=== PATIENT | male | born 1955 | race Caucasian/White ===

== ENCOUNTER 2019-02-07 10:43 | Day surgery (SDC) | payer BC ==
--- NOTE | 2019-02-06 14:05 | HP ---
REPORT DICTATED AND TRANSCRIBED AT [facility] ON 02/05/2019 FAXED TO [facility] ON 02/06/2019. DATE OF SURGERY: 02/07/2019 ADMISSION DIAGNOSIS: Symptomatic cholelithiasis. ANTICIPATED PROCEDURE: Cholecystectomy. HISTORY OF PRESENT ILLNESS: Patient has upper abdominal pain. Ultrasound positive. Seen and examined. Procedure discussed in detail and he wished to proceed. PAST MEDICAL HISTORY: ALLERGIES: PENICILLIN. MEDICATIONS: See list. PAST SURGICAL HISTORY: Lap-Band. Hernia. Left and right carpal tunnel. SOCIAL HISTORY: Negative. FAMILY HISTORY: Negative. REVIEW OF SYSTEMS: CVS: He has had a complete cardiac checkup. Satisfactory. PULMONARY: Negative. GI: Some reflux. : Negative. PHYSICAL EXAMINATION: VITAL SIGNS: Normal. CHEST: Clear. COR: Regular. ABDOMEN: No palpable organomegaly or mass. IMPRESSION: Symptomatic cholelithiasis. PLAN: Laparoscopic cholecystectomy.
[~2019-02-07 10:43] MED LIST: CLINDAMYCIN-D5W 900 MG/50 ML*** 900 MG/50 ML BAG IV STA; Lactated Ringers 1,000 ML IV ONE; Lactated Ringers 1,000 ML IV SCH; Levofloxacin 500MG/100ML D5W 500 MG/100 ML BAG IV STA; Sensorcaine 0.25% 10 ML ONE
[2019-02-07] MEDS ORDERED: Decadron 4 MG INJ IV ONE (10:44)
[2019-02-07] MEDS ORDERED: Zofran 4 MG/2 ML VIAL IV ONE (10:44)
[2019-02-07] MEDS ORDERED: SUBLIMAZE 100 MCG/2 ML IV ONE ×2 (10:44)
[2019-02-07] MEDS ORDERED: BRIDION 200MG/2ML IV ONE (10:44)
[2019-02-07] MEDS ORDERED: DIPRIVAN 200 MG/20 ML IV ONE (10:44)
[2019-02-07] MEDS ORDERED: TORAdol 30 mg Injection IV ONE (10:44)
[2019-02-07] MEDS ORDERED: Zemuron 100 MG/10 ML IV ONE (10:44)
[2019-02-07] MEDS ORDERED: XYLOCAINE 1% HCL 20 ML MDV ONE (16:10)
[2019-02-07] MEDS ORDERED: Zofran 4 MG/2 ML VIAL ONE (17:12)
[2019-02-07] MEDS ORDERED: MORPHINE SULFATE 10 MG/ML ONE (17:12)
[2019-02-07] MEDS ORDERED: SUBLIMAZE 100 MCG/2 ML ONE (17:20)
[2019-02-07] MEDS ORDERED: MORPHINE SULFATE 4 MG INJ IV PRN (17:51)
[2019-02-07] MEDS ORDERED: MORPHINE SULFATE 4 MG INJ ONE (17:52)
[2019-02-07 18:25] VITALS: BP 127/88; PULSE 81; O2SAT 94
--- NOTE | 2019-02-08 08:20 | OP ---
SURGERY DATE/TIME: 02/07/2019 1546 PREOPERATIVE DIAGNOSIS: Symptomatic cholelithiasis. POSTOPERATIVE DIAGNOSIS: Symptomatic cholelithiasis. PROCEDURE: Laparoscopic cholecystectomy. SURGEON: Dr. Denney. ANESTHESIA: General. ESTIMATED BLOOD LOSS: None. COMPLICATIONS: None. CONDITION: Stable. INDICATIONS: A patient with upper abdominal pain, ultrasound positive. Seen and examined. Procedure discussed in detail and wished to proceed. DESCRIPTION OF PROCEDURE AND FINDINGS: Taken to surgery. General anesthetic, routine prep and drape. Time out performed. Veress needle inserted. Opening pressure of 1, insufflating pressure 14. Four - 5's. Good visualization. Cystic artery defined. Cystic artery defined. Both structures triply clipped and transected. Clips noted across and well approximated. Gallbladder rolled out of gallbladder fossa. The gallbladder delivered through upper abdominal port with some widening as there were large stones. The field was totally clean. Hole closure device used with [id number] 0 Vicryl. CO2 exsufflated. Skin closed with 4-0 Vicryl and Steri-Strips. The patient tolerated the procedure satisfactorily.
== END 2019-02-07 18:33 | disposition home or self-care (01) ==
LOC: SDC 10:43
PROVIDERS: ATTEND Surgery
DX: K80.20 Calculus of gallbladder without cholecystitis without obstruction (principal)
CPT/HCPCS: J1100; J1885; J1956; J2270; J2405; J2704; J3010

== ENCOUNTER 2022-10-18 05:43 | Day surgery (SDC) | payer MEDICARE ==
[~2022-10-18 05:43] MED LIST changes: -CLINDAMYCIN-D5W 900 MG/50 ML*** 900 MG/50 ML BAG IV STA; -Lactated Ringers 1,000 ML IV ONE; -Levofloxacin 500MG/100ML D5W 500 MG/100 ML BAG IV STA; -Sensorcaine 0.25% 10 ML ONE
[2022-10-18] MEDS ORDERED: Lactated Ringers 1,000 ML IV SCH (06:30)
[2022-10-18] MEDS ORDERED: Versed 2 MG/2 ML Injection ONE (06:50)
[2022-10-18] MEDS ORDERED: DIPRIVAN 200 MG/20 ML IV ONE (06:50)
[2022-10-18] MEDS ORDERED: Xylocaine-Mpf 2% 5 Ml Vial ONE (06:59)
[2022-10-18 07:27] VITALS: O2SAT 95
[2022-10-18 07:41] VITALS: BP 145/87; PULSE 59
--- NOTE | 2022-10-18 10:31 | OP ---
SURGERY DATE/TIME: 10/18/2022 0657 PREOPERATIVE DIAGNOSIS: Screening exam. POSTOPERATIVE DIAGNOSIS: Normal colon. PROCEDURE: Colonoscopy. SURGEON: Dr. Jh Patrick. ANESTHESIA: MAC. Medications given by anesthesia department. HISTORY: The patient is a 66-year-old white male patient presenting now for screening colonoscopy. He was appraised of the risks of the procedure including the risk of perforation, phlebitis, untoward reaction to medication, bleeding and missed lesions. The patient verbalized his understanding and desired to have the procedure performed. DESCRIPTION OF PROCEDURE: The patient was given the medications by the anesthesia department. He had continuous pulse oximetry, ECG monitoring, intermittent blood pressure monitoring and tidal CO2 monitoring during the examination. He was placed in the left lateral decubitus position. A digital rectal examination was performed and revealed normal anal sphincter tone, no masses and normal prostate. The flexible Olympus pediatric colonoscope was used to intubate the rectum. A view of the colon was developed sequentially to the cecum. Upon insertion and withdrawal, including a retroflex view in the rectum, no mucosal lesions were encountered. The scope was removed from the patient who tolerated the procedure well and was sent back to outpatient recovery in good condition. The prep was noted to be fair as there was a large amounts of liquid stool present in the colon.
== END 2022-10-18 07:55 | disposition home or self-care (01) ==
LOC: SDC 05:43
PROVIDERS: ATTEND Family Medicine
DX: Z12.11 Encounter for screening for malignant neoplasm of colon (principal)
CPT/HCPCS: J2250; J2704

== ENCOUNTER 2023-08-14 21:45 | Emergency (ER) | payer MEDICARE ==
[2023-08-14 21:49] VITALS: TEMP 98.1
[2023-08-14] MEDS ORDERED: BENADRYL 25 MG CAPSULE PO ONE (21:51)
[2023-08-14] MEDS ORDERED: Pepcid 20 MG PO ONE (21:51)
--- NOTE | 2023-08-14 21:51 | ERPHSYRPT ---
- History of Present Illness Time Seen by Provider: 08/14/23 21:49 Source: patient, EMS, old records Exam Limitations: no limitations Physician History: This is an overweight 67-year-old white male patient was brought to the emergency department secondary to what is felt to be an allergic reaction. Patient received an intramuscular injection of an antibiotic at an outpatient office earlier this afternoon to treat a urinary tract infection. This evening he began having some wheezing and shortness of breath as well as rash and tightening of the throat. The patient does not have any chest pain. Paramedics arrived and provided the patient with a shot of epinephrine, intravenous 125 mg Solu-Medrol and 25 mg intravenous Benadryl. Patient's symptoms were improving. Patient is allergic to penicillin. We are unable to locate in our system what antibiotics the patient received. I am also not able to determine which oral, outpatient antibiotic was sent to the patient's pharmacy. Patient currently denies wheezing and shortness of breath. Although he did sense those symptoms earlier today. Patient was brought to the emergency department by the paramedics. Timing/Duration: today Severity: moderate Associated Symptoms: shortness of breath Allergies/Adverse Reactions: Penicillins Allergy (Severe, Verified 10/18/22 06:09) Swelling of Hands and feet strawberry Allergy (Verified 10/18/22 06:09) Vomiting Home Medications: Lisinopril 20 mg [Zestril 20 MG] 10 mg PO DAILY 01/28/19 [History] Naproxen 500 mg [Naprosyn 500 MG] 500 mg PO BID 01/28/19 [History] Omeprazole 40 mg PO DAILY 01/28/19 [History] Oxybutynin Chloride [Oxybutynin Chloride ER] 5 mg PO DAILY 02/07/19 [History] Metoprolol Succinate 25 mg Xl* [Toprol-Xl 25MG Tablets] 25 mg PO HS 08/14/23 [History] Travel Risk - International Travel Have you traveled outside of the country in past 3 weeks: No - Coronavirus Screening Are you exhibiting any of the following symptoms?: No Close contact with a COVID-19 positive Pt in past 14-21 Days: No - Review of Systems Constitutional: No Symptoms Eyes: No Symptoms Ears, Nose, & Throat: No Symptoms, Throat Swelling ([place] some throat tightness. None now) Respiratory: Wheezing (Earlier at home) Cardiac: No Symptoms Abdominal/Gastrointestinal: No Symptoms Genitourinary Symptoms: No Symptoms Musculoskeletal: No Symptoms Skin: No Symptoms Neurological: No Symptoms Psychological: No Symptoms Endocrine: No Symptoms Hematologic/Lymphatic: No Symptoms Immunological/Allergic: No Symptoms All Other Systems: Reviewed and Negative - Past Medical History Pertinent Past Medical History: Yes Neurological History: No Pertinent History ENT History: No Pertinent History Cardiac History: High Cholesterol, Hypertension Respiratory History: No Pertinent History Endocrine Medical History: No Pertinent History Musculoskeletal History: Osteoarthritis, Other GI Medical History: No Pertinent History History: Other Psycho-Social History: No Pertinent History Male Reproductive Disorders: Prostate Problems Other Medical History: BEEN REFERRED TO HAND SPECIALIST HE HAS BEEN HAVING PAIN IN RIGHT THUMB (1ST MCP) AND A CYST IN LEFT PALM. PMHX: OA, SANDOR CARPAL TUNNEL, BPH - Past Surgical History Past Surgical History: Yes Neuro Surgical History: No Pertinent History Cardiac: No Pertinent History Respiratory: No Pertinent History Gastrointestinal: Cholecystectomy, Hernia Repair, Other Genitourinary: No Pertinent History Musculoskeletal: Other Male Surgical History: No Pertinent History Other Surgical History: lap band. carpal tunnel bilateral - Social History Smoking Status: Former smoker Exposure to second hand smoke: No Drug Use: none - Nursing Vital Signs Nursing Vital Signs: Initial Vital Signs Blood Pressure 120/82 08/14/23 21:45 O2 Sat by Pulse Oximetry 94 L 08/14/23 21:45 Pain Scale Pain Intensity 0 - Physical Exam General Appearance: no apparent distress, alert, anxiety, obese Eye Exam: PERRL/EOMI, eyes nml inspection Ears, Nose, Throat Exam: normal ENT inspection, moist mucous membranes Neck Exam: normal inspection, non-tender, supple, full range of motion Respiratory Exam: normal breath sounds, lungs clear, airway intact, No chest tenderness, No respiratory distress Cardiovascular Exam: tachycardia Gastrointestinal/Abdomen Exam: soft, normal bowel sounds, No tenderness Rectal Exam: not done Back Exam: normal inspection, normal range of motion, No CVA tenderness, No vertebral tenderness Extremity Exam: normal inspection, normal range of motion, pelvis stable Neurologic Exam: alert, oriented x 3, cooperative, de icer finisher II-XII nml as tested, normal mood/affect, nml cerebellar function, nml station & gait, sensation nml Skin Exam: normal color, warm, dry Lymphatic Exam: No adenopathy SpO2 Interpretation: borderline oxygenation SpO2: 94 O2 Delivery: Room Air - Course Nursing assessment & vital signs reviewed: Yes EKG Interpreted by Me: RATE ([id number]), Sinus Rhythm, LAFB, Right Bundle Branch Block, Other (Acute ischemic changes on today's twelve-lead EKG. the L AFB is a new finding when compared to twelve-lead EKG on 05/26/2021. There is persistent right bundle bart block.) Ordered Tests: Active Orders 24 hr Category Date Time Status IV Insertion STAT Care 08/14/23 22:14 Active CHEST WITH CONTRAST [CT] Stat Exams 08/14/23 22:44 Completed BMP Stat Lab 08/14/23 22:10 Completed CBC W DIFF Stat Lab 08/14/23 22:10 Completed D-DIMER QUANTITATIVE Stat Lab 08/14/23 22:10 Completed POCT GLUCOSE Stat Lab 08/14/23 22:11 Completed TROPONIN Q4H Lab 08/14/23 22:10 Completed TROPONIN Q4H Lab 08/15/23 01:10 Received TROPONIN Q4H Lab 08/15/23 06:00 Ordered Medication Summary Discontinued Medications Generic Name Dose Route Start Last Admin Trade Name Freq PRN Reason Stop Dose Admin Diphenhydramine HCl 25 mg 08/14/23 21:51 08/14/23 22:32 Diphenhydramine Hcl 25 Mg Capsule PO 08/14/23 21:52 25 mg STAT ONE Administration Diphenhydramine HCl Confirm 08/14/23 22:32 Diphenhydramine Hcl 25 Mg Capsule Administered 08/14/23 22:33 Dose 25 mg .ROUTE .STK-MED ONE Famotidine 40 mg 08/14/23 21:51 08/14/23 22:33 Famotidine 20 Mg Tablet PO 08/14/23 21:52 40 mg STAT ONE Administration Famotidine Confirm 08/14/23 22:32 Famotidine 20 Mg Tablet Administered 08/14/23 22:33 Dose 40 mg .ROUTE .STK-MED ONE Sodium Chloride 500 mls @ 500 mls/hr 08/14/23 22:44 08/15/23 00:09 Sodium Chloride 0.9% 500 Ml IV 08/14/23 23:43 Infused .Q1H ONE Infusion Sodium Chloride Confirm 08/14/23 22:52 Sodium Chloride 0.9% 500 Ml Administered 08/14/23 22:53 Dose 500 mls @ ud IV .STK-MED ONE Lab/Rad Data: Laboratory Result Diagrams 08/14/23 22:10 08/14/23 22:10 Laboratory Results 08/14/23 08/14/23 08/14/23 Range/Units 22:11 22:10 22:10 WBC (4.0-10.5) x10^3/uL RBC (4.1-5.6) x10^6/uL Hgb (12.5-18.0) g/dL Hct (42-50) % MCV (78-100) fL MCH (26-32) pg MCHC (32-36) g/dL RDW (11.5-14.0) % Plt Count (150-450) x10^3/uL MPV (7.5-11.0) fL Gran % (36.0-66.0) % Immature Gran % (Auto) (0.00-0.4) % Nucleat RBC Rel Count (0.00-0.1) % Eos # (Auto) (0-0.5) x10^3/uL Immature Gran # (Auto) (0.00-0.03) x10^3u/L Absolute Lymphs (auto) (1.0-4.6) x10^3/uL Absolute Monos (auto) (0.0-1.3) x10^3/uL Absolute Nucleated RBC (0.00-0.01) x10^3u/L Lymphocytes % (24.0-44.0) % Monocytes % (0.0-12.0) % Eosinophils % (0.00-5.0) % Basophils % (0.0-0.4) % Absolute Granulocytes (1.4-6.9) x10^3/uL Basophils # (0-0.4) x10^3/uL D-Dimer 16.87 H* (0.0-0.50) mg/L Sodium (137-145) mmol/L Potassium (3.5-5.1) mmol/L Chloride (98-107) mmol/L Carbon Dioxide (22-30) mmol/L Anion Gap (5-15) MEQ/L BUN (9-20) mg/dL Creatinine (0.66-1.25) mg/dL Estimated GFR ML/MIN Glucose (74-106) mg/dL POC Glucometer 169 H (74 to 106) mg/dL Calcium (8.4-10.2) mg/dL Troponin I 0.100 H* (0.000-0.034) ng/mL Slides for Path Review 08/14/23 08/14/23 Range/Units 22:10 22:10 WBC 8.9 (4.0-10.5) x10^3/uL RBC 4.83 (4.1-5.6) x10^6/uL Hgb 14.8 (12.5-18.0) g/dL Hct 44.1 (42-50) % MCV 91.3 (78-100) fL MCH 30.6 (26-32) pg MCHC 33.6 (32-36) g/dL RDW 14.4 H (11.5-14.0) % Plt Count 146 L (150-450) x10^3/uL MPV 10.5 (7.5-11.0) fL Gran % 85.1 H (36.0-66.0) % Immature Gran % (Auto) 1.5 H (0.00-0.4) % Nucleat RBC Rel Count 0.0 (0.00-0.1) % Eos # (Auto) 0.01 (0-0.5) x10^3/uL Immature Gran # (Auto) 0.13 H (0.00-0.03) x10^3u/L Absolute Lymphs (auto) 0.53 L (1.0-4.6) x10^3/uL Absolute Monos (auto) 0.62 (0.0-1.3) x10^3/uL Absolute Nucleated RBC 0.00 (0.00-0.01) x10^3u/L Lymphocytes % 6.0 L (24.0-44.0) % Monocytes % 7.0 (0.0-12.0) % Eosinophils % 0.1 (0.00-5.0) % Basophils % 0.3 (0.0-0.4) % Absolute Granulocytes 7.55 H (1.4-6.9) x10^3/uL Basophils # 0.03 (0-0.4) x10^3/uL D-Dimer (0.0-0.50) mg/L Sodium 136 L (137-145) mmol/L Potassium 3.7 (3.5-5.1) mmol/L Chloride 102 (98-107) mmol/L Carbon Dioxide 21 L (22-30) mmol/L Anion Gap 16.0 H (5-15) MEQ/L BUN 26 H (9-20) mg/dL Creatinine 1.53 H (0.66-1.25) mg/dL Estimated GFR 48.6 ML/MIN Glucose 168 H (74-106) mg/dL POC Glucometer (74 to 106) mg/dL Calcium 9.4 (8.4-10.2) mg/dL Troponin I (0.000-0.034) ng/mL Slides for Path Review YES - Progress Progress: improved, re-examined Progress Note: 08/14/23 22:03 This patient's medical issue is 1 of moderate to high complexity complexity. Level complex in the work-up performed is based on review of the patient's past medical history, review of the patient's drug allergy list, review of the jack ent's medication list, history of present illness and physical findings on examination. The work-up in the patient includes a twelve-lead EKG, oral Benadryl 25 mg, oral famotidine 40 mg, CBC, BMP and troponin level. 08/15/23 01:02 I reviewed the results of the work-up. The patient's troponin is 0.1 which is elevated. Patient continues not having chest pain. He is only mildly short of breath. His D-dimer is elevated and we ordered a CT of the chest with contrast. The radiologist interpreted this study. There is no evidence of infiltrate. There is findings to suggest pulmonary hypertension but no evidence for pulmonary embolism. We will contact [facility] about transferring this patient. 08/15/23 01:[address] Trent the emergency room physician on at [facility]. I reviewed the patient history, I reviewed the patient presenting complaint, I reviewed the patient's work-up results including the twelve-lead EKG troponin level as well as the impression on the CT scan of the chest that was interpreted by the radiologist. Dr. Trent accepts the patient in transfer. Counseled pt/family regarding: lab results, diagnosis, need for follow-up Medical Desision Making - Independent Historian Additional History obtained from: Spouse, Family, Roll Wrapper/EMT - Diagnostic Testing Diagnostic test were ordered, analyzed, and reviewed by me: Yes Radiological Interpretation: Reviewed by me, Teleradiologist Report - Risk of complications The pt has a high risk of morbidity or mortality based on: Decision regarding hospitilization or escalation of hosp level of care - Departure Departure Disposition: Transfer Clinical Impression: Non-STEMI (non-ST elevated myocardial infarction) Condition: Stable Critical Care Time: No Referrals: SPEEDY SCHULZ MD [Primary Care Provider] - Follow up/PCP as directed
[2023-08-14 22:20] LABS: Absolute Neutrophil Ct (ANC) 7.55 x10^3/uL (1.4-6.9); BASOPHIL % 0.3 % (0.0-0.4); Basophil (Absolute #) 0.03 x10^3/uL (0-0.4); Eosinophil % 0.1 % (0.00-5.0); Eosinophil (Absolute #) 0.01 x10^3/uL (0-0.5); Hematocrit 44.1 % (42-50); Hemoglobin 14.8 g/dL (12.5-18.0); IMMATURE GRAN # 0.13 x10^3u/L (0.00-0.03); IMMATURE GRAN % 1.5 % (0.00-0.4); Lymphocyte (Absolute #) 0.53 x10^3/uL (1.0-4.6); Mean Cell Volume 91.3 fL (78-100); Mean Corpuscular Hemoglobin 30.6 pg (26-32); Mean Corpuscular Hgb Concent. 33.6 g/dL (32-36); Mean Platelet Volume 10.5 fL (7.5-11.0); Monocyte (Absolute #) 0.62 x10^3/uL (0.0-1.3); Neutrophil % 85.1 % (36.0-66.0); Platelet Count 146 x10^3/uL (150-450); Red Blood Count 4.83 x10^6/uL (4.1-5.6); Red Cell Distribution Width 14.4 % (11.5-14.0); White Blood Count 8.9 x10^3/uL (4.0-10.5)
[2023-08-14 22:32] LABS: Calcium 9.4 mg/dL (8.4-10.2); Creatinine 1 1.53 mg/dL (0.66-1.25); EST GLOMERULAR FILTRATION RATE 48.6 ML/MIN; Potassium 3.7 mmol/L (3.5-5.1)
[2023-08-14] MEDS ORDERED: BENADRYL 25 MG CAPSULE ONE (22:32)
[2023-08-14] MEDS ORDERED: Pepcid 20 MG ONE (22:32)
[2023-08-14] MEDS ORDERED: Sodium Chloride 0.9% 500 ML 500 ML IV ONE ×2 (22:44→22:52)
[2023-08-14 22:59] LABS: Slide Review 1 YES
--- NOTE | 2023-08-15 00:43 | XRAY ---
CLINICAL HISTORY:Elevated D-dimer; SOA COMPARISON:None. TECHNIQUE:Contiguous 3.[address] anigographic images of the chest were acquired with the administration of intravenous contrast with PE protocol. Coronal and sagittal reconstructions were obtained. FINDINGS: The study is partly degraded by respiratory motion artifacts. No evidence of any filling defect in the main pulmonary trunk, bilateral main pulmonary arteries, segmental arteries and subsegmental arteries to suggest acute or chronic pulmonary embolism. The main pulmonary trunk measures 3.4 cm. The right main pulmonary measures 2.2 cm left main pulmonary artery measures 2.3 cm at the level of [place]. Findings are concerning for pulmonary arterial hypertension. Normal cardiac size and shape. fine aortic atheromatous calcifications. Bilateral lower lobes posterior segments subpleural patchy parenchymal veiling, possibly gravitational changes. Focal subpleural calcification/plaque measuring 1.0 x 0.6 cm is seen medially in the right lower lobe on axial series 2, image 231/261. Right lower and middle lobes as well as lingular fine atelectatic plates. Right hilar calcified lymph nodes. No pleural or pericardial sac collections. A focal 3 mm right thyroid lobe calcification. Scanned upper abdominal cuts show fatty hepatomegaly, bulky splenic showing calcific foci, gastric band with small hiatus hernia, right adrenal myelolipoma measuring about 4 cm in diameter and small left cortical renal cyst. Degenerative spondylotic changes are seen in the spine. No acute bony pathology or fracture seen. IMPRESSION: 1. No evidence of any filling defect in the main pulmonary trunk, bilateral main pulmonary arteries, segmental arteries and subsegmental arteries to suggest acute or chronic pulmonary embolism. 2. Mildly dilated pulmonary trunk, right and left main pulmonary artery concerning for possible pulmonary arterial hypertension. Please correlate clinically. 3. The rest of the findings as detailed above. Electronically Signed by: Beth Yoder MD. (08/14/2023 23:41:31 POLITICAL ORGANIZER)
[2023-08-15 01:08] VITALS: O2SAT 94
[2023-08-15 02:07] VITALS: BP 110/78; PULSE 98; RESP 22
== END 2023-08-15 02:29 | disposition short-term general hospital (02) ==
LOC: ED 21:45
DX: I21.4 Non-ST elevation (NSTEMI) myocardial infarction (principal); R06.02 Shortness of breath; R06.2 Wheezing; R21 Rash and other nonspecific skin eruption; E78.5 Hyperlipidemia, unspecified; I10 Essential (primary) hypertension; Z79.899 Other long term (current) drug therapy
CPT/HCPCS: 36000; 36415; 71260; 80048; 82947; 84484; 85025; 85379; 96360; 99285; A9270-GY